=== PATIENT | female | born 1945 | race Caucasian/White ===

== ENCOUNTER 2017-12-05 12:34 | Emergency (ER) | payer MEDICARE, OTHER ==
[2017-12-05] MEDS ORDERED: normal saline 1000ML IV soln IVB ONE (12:50)
[2017-12-05 13:17] LABS: BASOPHILS % (AUTO) 0.4 % (0-1); EOSINOPHILS # (AUTO) 0.1 X10'3 (0-0.9); EOSINOPHILS % (AUTO) 1.7 % (0-6); HEMATOCRIT 35.1 % (35.0-45.0); LYMPHOCYTES # (AUTO) 1.7 X10'3 (1.1-4.8); LYMPHOCYTES % (AUTO) 21.8 % (21-51); MEAN CORPUSCULAR HEMOGLOBIN 31.2 PG (27.0-31.0); MEAN CORPUSCULAR HGB CONC 34.1 % (33.0-36.5); MEAN CORPUSCULAR VOLUME 91.4 FL (78-98); MEAN PLATELET VOLUME 7.6 FL (7.4-10.4); MONOCYTES # (AUTO) 0.6 X10'3 (0-0.9); MONOCYTES % (AUTO) 7.3 % (2-12); NEUTROPHILS # (AUTO) 5.2 X10'3 (1.8-7.7); NEUTROPHILS % (AUTO) 68.8 % (42-75); PLATELET COUNT 185 X10'3 (140-440); RED BLOOD COUNT 3.84 X10'6 (4.20-5.60); RED CELL DISTRIBUTION WIDTH 13.8 % (11.5-14.5); WHITE BLOOD COUNT 7.6 X10'3 (4.5-11.0)
[2017-12-05 13:33] LABS: ALANINE AMINOTRANSFERASE 32 U/L (12-78); ALBUMIN 2.9 G/DL (3.4-5.0); ALKALINE PHOSPHATASE 53 IU/L (46-116); ANION GAP 12 (8-16); ASPARTATE AMINO TRANSFERASE 22 U/L (10-37); BILIRUBIN,TOTAL 0.5 MG/DL (0.1-1.0); BLOOD UREA NITROGEN 17 MG/DL (7-18); BUN/CREATININE RATIO 13.4 (6.6-38.0); CALCIUM 7.8 MG/DL (8.5-10.1); CHLORIDE 109 MMOL/L (99-107); CREATININE 1.27 MG/DL (0.40-0.90); GLUCOSE 105 MG/DL (70-104); POTASSIUM 3.7 MMOL/L (3.5-5.1); SODIUM 142 MMOL/L (135-145); TOTAL CARBON DIOXIDE 21.4 MMOL/L (24-32); TOTAL PROTEIN 5.8 G/DL (6.4-8.2); eGFR 42 ML/MIN
[2017-12-05 14:32] VITALS: BP 94/57
[2017-12-05 14:41] LABS: CLARITY,URINE CLEAR (Clear); COLOR,URINE YELLOW (Yellow); GLUCOSE, URINE NEGATIVE (Neg); KETONES,URINE TRACE mg/dl (Neg); LEUKOCYTE ESTERASE ,URINE SMALL (Neg); NITRITES, URINE NEGATIVE (Neg); OCCULT BLOOD,URINE NEGATIVE (Neg); PROTEIN,URINE NEGATIVE (Neg); UROBILINOGEN,URINE 0.2 E.U/dL (0.2-1.0)
[2017-12-05 14:45] LABS: UA COLLECTION TYPE CLN CATCH MIDSTREAM
[2017-12-05 14:47] LABS: BACTERIA,URINE 4+ /HPF (Neg); MUCUS STRANDS FEW /LPF (Neg); RBC,URINE NONE SEEN /HPF (0-2); SQUAMOUS EPITHELIAL CELL,UR MODERATE /LPF (FEW)
== END 2017-12-05 14:34 | disposition home or self-care (01) ==
LOC: ER 12:35
DX: R55 Syncope and collapse (principal); J45.909 Unspecified asthma, uncomplicated; M41.9 Scoliosis, unspecified; Z88.0 Allergy status to penicillin
CPT/HCPCS: 36415; 71045; 80053; 81001; 82948; 85025; 87077; 87088; 87186; 93005; 96360; 99285

== ENCOUNTER 2018-01-18 09:42 | Outpatient (CLI) | payer MEDICARE, OTHER ==
[2018-01-18] VITALS (18 sets, daily range): BP systolic 98–133; BP diastolic 64–88
== END 2018-01-18 23:59 | disposition home or self-care (01) ==
LOC: CARD DIAG 09:42
PROVIDERS: ATTEND Internal Medicine Interventional Cardiology
DX: R55 Syncope and collapse (principal); F17.200 Nicotine dependence, unspecified, uncomplicated; J45.909 Unspecified asthma, uncomplicated
CPT/HCPCS: 93660

== ENCOUNTER 2023-06-22 13:43 | Emergency (ER) | payer MEDICARE, OTHER ==
[~2023-06-22] VITALS: Ht 170.2 cm; Wt 65.3 kg
[2023-06-22 14:42] VITALS: BP 108/57; PULSE 66; RESP 14; TEMP 98.2; O2SAT 94
[2023-06-22 15:21] LABS: BASOPHILS # (AUTO) 0.1 X10'3 (0-0.2); BASOPHILS % (AUTO) 0.6 % (0-1); EOSINOPHILS % (AUTO) 0.4 % (0-6); HEMATOCRIT 40.3 % (35.0-45.0); HEMOGLOBIN 13.8 g/dl (12.0-16.0); LYMPHOCYTES # (AUTO) 1.3 X10'3 (1.1-4.8); LYMPHOCYTES % (AUTO) 12.6 % (21-51); MEAN CORPUSCULAR HEMOGLOBIN 31.6 PG (27.0-31.0); MEAN CORPUSCULAR HGB CONC 34.3 g/dL (33.0-36.5); MEAN CORPUSCULAR VOLUME 92.2 FL (78-98); MEAN PLATELET VOLUME 7.5 FL (7.4-10.4); MONOCYTES # (AUTO) 0.5 X10'3 (0-0.9); MONOCYTES % (AUTO) 5.1 % (2-12); NEUTROPHILS # (AUTO) 8.3 X10'3 (1.8-7.7); NEUTROPHILS % (AUTO) 81.3 % (42-75); PLATELET COUNT 245 X10'3 (140-440); RED BLOOD COUNT 4.37 X10'6 (4.20-5.60); WHITE BLOOD COUNT 10.2 X10'3 (4.5-11.0)
[2023-06-22 15:33] LABS: ALANINE AMINOTRANSFERASE 20 U/L (12-78); ALBUMIN 3.4 G/DL (3.4-5.0); ALKALINE PHOSPHATASE 61 IU/L (46-116); ANION GAP 8 (8-16); ASPARTATE AMINO TRANSFERASE 15 U/L (10-37); BILIRUBIN,TOTAL 0.3 MG/DL (0.1-1.0); BLOOD UREA NITROGEN 10 MG/DL (7-18); BUN/CREATININE RATIO 11.6 (10.0-20.0); CALCIUM 8.9 MG/DL (8.5-10.1); CHLORIDE 103 MMOL/L (99-107); CREATININE 0.86 MG/DL (0.40-0.90); GLUCOSE 91 MG/DL (70-104); POTASSIUM 3.8 MMOL/L (3.5-5.1); SODIUM 137 MMOL/L (135-145); TOTAL CARBON DIOXIDE 25.9 MMOL/L (24-32); TOTAL PROTEIN 6.9 G/DL (6.4-8.2); eCRCL 54 ML/MIN; eGFR 64 ML/MIN
[2023-06-22 15:43] LABS: PRO BRAIN NATRIURETIC PEPTIDE 304 PG/ML (0-450)
[2023-06-22 15:58] LABS: BILIRUBIN,URINE NEGATIVE (Neg); CLARITY,URINE CLEAR (Clear); COLOR,URINE YELLOW (Yellow); GLUCOSE, URINE NEGATIVE (Neg); KETONES,URINE NEGATIVE (Neg); LEUKOCYTE ESTERASE ,URINE NEGATIVE (Neg); NITRITES, URINE NEGATIVE (Neg); OCCULT BLOOD,URINE NEGATIVE (Neg); PROTEIN,URINE NEGATIVE (Neg); UROBILINOGEN,URINE 0.2 E.U/dL (0.2-1.0)
[2023-06-22 16:03] LABS: UA COLLECTION TYPE VOIDED
== END 2023-06-22 18:01 | disposition left against medical advice (07) ==
LOC: ER 13:43
DX: R53.1 Weakness (principal); Z53.21 Procedure and treatment not carried out due to patient leaving prior to being seen by health care provider
CPT/HCPCS: 36415; 71045; 80053; 81003; 83880; 84484; 85025; 93005; 99281

== ENCOUNTER 2023-06-30 10:23 | Outpatient (CLI) | payer MEDICARE, OTHER ==
[2023-06-30] MEDS ORDERED: iohexol 300mg/ml 100ml inj. ONE (11:23)
== END 2023-06-30 23:59 | disposition home or self-care (01) ==
LOC: RAD 10:23
PROVIDERS: ATTEND Family Medicine
DX: I25.10 Atherosclerotic heart disease of native coronary artery without angina pectoris (principal); I70.0 Atherosclerosis of aorta; J18.1 Lobar pneumonia, unspecified organism; R06.02 Shortness of breath; M41.85 Other forms of scoliosis, thoracolumbar region; M47.815 Spondylosis without myelopathy or radiculopathy, thoracolumbar region
CPT/HCPCS: 71260; J3490; Q9967

== ENCOUNTER 2025-06-11 09:04 | Emergency (ER) | payer MEDICARE, OTHER ==
[~2025-06-11] VITALS: Ht 167.6 cm; Wt 72.3 kg
[2025-06-11 09:13] VITALS: TEMP 97.7
--- NOTE | 2025-06-11 09:18 | ELECTROCARDIOGRAPH REPORT ---
[facility] Test Date: 2025-06-11 Test Time: 09:11:33 Pat Name: ERIK VALERA Department: EMERGENCY ROOM Room: Gender: F Lab Specialist: JEY : 1945 Requested By: DEISY MUJICA Order Number: [id number] Reading MD: Dr. COURT Zimmer Measurements Intervals [place] Rate: 73 P: -46 MS: 172 QRS: 62 QRSD: 78 T: 68 QT: 370 QTc: 408 Interpretive Statements Ectopic atrial rhythm Abnormal R-wave progression, early transition Electronically Signed On 06-12-2025 18:41:[address] Zimmer Please click the below link to view image of tracing.
[2025-06-11 09:32] LABS: MEAN PLATELET VOLUME 7.8 FL (7.4-10.4); RED CELL DISTRIBUTION WIDTH 14.0 % (11.5-14.5)
--- NOTE | 2025-06-11 09:53 | RADIOLOGY REPORT ---
CHEST RADIOGRAPH Indication: CP Technique: Single frontal view of the chest was obtained COMPARISON: CT CT CHEST on DOS: 06/30/23, DI CHEST,SINGLE VIEW on DOS: 06/22/23 FINDINGS: Lines and Tubes: None Lungs: Clear Pleura: No effusion. No pneumothorax. Cardiomediastinal contours: Scoliosis Bones: Unremarkable IMPRESSION: No acute disease.
[2025-06-11 09:54] LABS: CREATININE 1.06 MG/DL (0.40-0.90); PRO BRAIN NATRIURETIC PEPTIDE 392 PG/ML (0-450); TOTAL CARBON DIOXIDE 25.3 MMOL/L (24-32); eCRCL 41 ML/MIN; eGFR 50 ML/MIN
--- NOTE | 2025-06-11 10:47 | Physician Documentation ---
History of Present Illness ~ Chief Complaint: Chest Pain Stated Complaint: POSSIBLE HEARTATTACK Time Seen by MD: 12:49 Primary Medical Doctor: caren [facility] 80-year-old female who presents with multiple symptoms including dizziness, chest discomfort and near-syncope She tells me that last night she had an episode where she suddenly became very dizzy like she was off balance and things were spinning. She felt sweaty and faint. This lasted for about 20 minutes or so and then improved. This morning she had another episode where she started to feel nauseous and sweaty and generally unwell. She also had some pain in her left chest and arm, felt like she had pain radiating down from her neck. When she pushed on a tight spot around the left side of her neck this pain improved. Currently she denies any symptoms. She denies any current chest pain. She reports a history of similar episodes about 2 years ago, had an extensive workup including brain imaging, stress test, ultrasound, heart monitor, and other. This did not show a dangerous cause for her symptoms. She has an appointment tomorrow with the clerical methods analyst Medication Reconciliation Allergies: Coded Allergies: Penicillins (Verified Allergy, Severe, DIFFICULTY BREATHING, 12/05/17) Past Medical History Past Medical History: Asthma Past Surgical History: other Other Past Surgical History: thyroid surgery Alcohol Use: None Drug Use: none Lives In: Home Review of Systems ROS As stated above in the HPI, otherwise all systems are reviewed and negative. Constitutional: Reports: weakness; Denies: fever Cardiovascular: Reports: chest pain, left arm pain, diaphoresis, lightheadednes s; Denies: syncope Physical Exam Vital Signs: Temperature: 97.7, Heart Rate: 89, Respiratory Rate: 16, BP: 117/60, Pulse Oximetry: 99, Weight: 72.270 Oxygen Flow Rate: 0 Physical Exam General: This is a pleasant older female with a good sense of humor, daughter at bedside HEENT: Atraumatic, oropharynx is moist Heart: Regular rate and rhythm, no audible murmur, normal-appearing peripheral perfusion Lungs: Clear breath sounds bilateral, normal work of breathing, normal oxygen saturation on room air Abdomen: Soft, nondistended, nontender all quadrants Extremities: Warm and well-perfused, no edema Neuro: Alert and oriented Psychiatric: Calm and cooperative with exam Progress Results/Orders Results/Orders Orders - DEISY MUJICA MD Chest,Single View (06/11/25 09:17) Monitor (06/11/25 09:17) Saline Lock (06/11/25 09:17) Oxygen (06/11/25 09:17) Completed Orders - DEISY MUIJCA MD Chest,Single View (06/11/25 09:17) Cbc/Diff (06/11/25 09:17) BMP (06/11/25 09:17) PBNP (06/11/25 09:17) Electrocardiogram (06/11/25 09:17) Hs Troponin I W Calculations (06/11/25 09:17) Hs Troponin I W Calculations (06/11/25 11:17) Vital Signs 06/11/25 06/11/25 06/11/25 09:13 11:48 12:49 Temp 97.7 Pulse 89 58 Resp 16 22 16 B/P (MAP) 117/60 104/64 (77) Pulse Ox 99 97 O2 Flow Rate 0 0 Laboratory Tests Test 06/11/25 09:13 06/11/25 11:11 White Blood Count 5.9 Red Blood Count 4.37 Hemoglobin 13.6 Hematocrit 39.4 Mean Corpuscular Volume 90.1 Mean Corpuscular Hemoglobin 31.0 Mean Corpuscular Hemoglobin Concent 34.4 Red Cell Distribution Width 14.0 Platelet Count 243 Mean Platelet Volume 7.8 Neutrophils (%) (Auto) 60.1 Lymphocytes (%) (Auto) 27.1 Monocytes (%) (Auto) 8.3 Eosinophils (%) (Auto) 3.6 Basophils (%) (Auto) 0.9 Neutrophils # (Auto) 3.6 Lymphocytes # (Auto) 1.6 Monocytes # (Auto) 0.5 Eosinophils # (Auto) 0.2 Basophils # (Auto) 0.1 CBC Comment Sodium Level 140 Potassium Level 3.9 Chloride Level 105 Carbon Dioxide Level 25.3 Anion Gap 10 Blood Urea Nitrogen 16 Creatinine 1.06 H Estimated GFR/1.73 m2 50 BUN/Creatinine Ratio 15.1 Glucose Level 100 Calcium Level 8.8 Troponin I High Sensitivity 6 6 Pro-B-Type Natriuretic Peptide 392 Albumin 3.7 Chemistry Comments Troponin I High Sens Percent Delta 0 Troponin I Hi Sens Absolute Change 0 EKG/XRAY/CT/US/VASC/MRI EKG : Additional Comment I personally interpreted the EKG and this shows: Sinus rhythm, rate 73, QTC 408, no STEMI Medical Decision Making Additional information obtaine: family Findings MSE performed in triage and patient returned to ED lobby by nursing staff to await available ED room. Initially EKG did not show STEMI and 1st your troponin was not elevated. Heart Score: 4 Differential Dx:Considerations: Include: anxiety, CHF, COPD, dysrhythmia, hypertension, accelerated, myocardial infarction, panic attack, respiratory failure Additional Infomation The patient presents with several episodes of dizziness, near-syncope, and also chest pain. Here in the ED she is asymptomatic. Her exam is unremarkable. Vital signs normal. Her workup today does not show any obvious dangerous cause for her symptoms. She has had similar in the past with an extensive workup that also did not show a dangerous cause. I did offer admission for further observation and testing, but the patient declined. She would prefer to be discharged home. She does have a follow up appointment tomorrow with the clerical methods analyst. Return precautions given. Departure Time of Disposition: 13:31 Disposition: 01 HOME / SELF CARE / HOMELESS Impression: Primary Impression: Near syncope Condition: Improved Discharge Instructions: Near-Syncope Referrals: NO PRIMARY CARE PROVIDER (PCP) Education Educated: Patient, Family Educated regarding: diagnosis, treatment, need for follow up Signature Scribe Signature: na Attestation: RANJANA Brown Jun 11, 2025 10:47 DEISY MUJICA MD Jun 11, 2025 13:32
[2025-06-11 13:47] VITALS: BP 109/65; PULSE 68; RESP 20; O2SAT 97
== END 2025-06-11 13:50 | disposition home or self-care (01) ==
LOC: ER 09:06
DX: R55 Syncope and collapse (principal); R42 Dizziness and giddiness; R07.9 Chest pain, unspecified; M54.2 Cervicalgia; R61 Generalized hyperhidrosis; M79.602 Pain in left arm; R53.1 Weakness; R06.2 Wheezing; Z88.0 Allergy status to penicillin
CPT/HCPCS: 36415; 71045; 80048; 83880; 84484; 85025; 93005; 99285